=== PATIENT | female | born 1975 | race Two or more races ===

== ENCOUNTER 2017-08-21 10:35 | Day surgery (SDC) | payer OTHER, SELFPAY ==
[~2017-08-21] VITALS: Ht 152.4 cm; Wt 82.4 kg
[2017-08-21] MEDS ORDERED: ONDANSETRON 2MG/ML, 2ML IVPush ONE (11:30)
[2017-08-21] MEDS ORDERED: SODIUM CHLORIDE FLUSH 10ML SYR IVF ONE (11:30)
[2017-08-21] MEDS ORDERED: SODIUM CHLORIDE 0.9% 1,000ML IVBOLUS ONE (11:30)
[2017-08-21] MEDS ORDERED: HYDROmorphone 1 MG/ML, 1ML ONE ×2 (11:37→13:33)
[2017-08-21] MEDS ORDERED: ONDANSETRON 2MG/ML, 2ML ONE (11:37)
[2017-08-21] MEDS: HYDROmorphone 1 MG/ML, 1ML IVPush PRN ×2 (11:43→13:36)
[2017-08-21 11:52] LABS: ASPARTATE AMINO TRANSFERASE 17 U/L (15-37); BLOOD UREA NITROGEN 8 mg/dL (7-18)
[2017-08-21 13:31] VITALS: BP 152/90
[2017-08-21 13:35] LABS: HEMATOCRIT 44.3 % (34.6-47.8); HEMOGLOBIN 14.8 g/dL (11.7-16.4); WHITE BLOOD COUNT 16.6 x10^3/uL (3.4-10)
[2017-08-21] MEDS ORDERED: CEFOTETAN PMX 1GM/50ML 50 ML ONE (13:50)
[2017-08-21] MEDS ORDERED: CEFOTETAN PMX 1GM/50ML 50 ML IV ONE (14:00)
[2017-08-21] MEDS ORDERED: POTASSIUM CHLORIDE 20 MEQ in SODIUM CHLORIDE 0.9% 1,000 ML IV ONE (14:07)
[2017-08-21] MEDS ORDERED: SODIUM CHLORIDE FLUSH 10ML SYR IVF PRN (14:30)
[2017-08-21] MEDS ORDERED: HYDROmorphone 1 MG/ML, 1ML IVPush PRN (14:30)
[2017-08-21] MEDS ORDERED: ONDANSETRON 2MG/ML, 2ML IVPush PRN ×2 (14:30→15:30)
[2017-08-21] MEDS ORDERED: FENTANYL PF 100 MCG/2ML ONE ×2 (15:20→15:21)
[2017-08-21] MEDS ORDERED: MIDAZOLAM 1 MG/ML, 2ML ONE (15:21)
[2017-08-21] MEDS ORDERED: SUCCINYLCHOLINE 20 MG/ML, 10ML ONE ×2 (15:23→16:49)
[2017-08-21] MEDS ORDERED: EPINEPHRINE 1 MG/ML, 1ML ONE (15:27)
[2017-08-21] MEDS ORDERED: BUPIVACAINE/PF 0.5% ONE (15:27)
[2017-08-21] MEDS ORDERED: OXYcodone 5 MG/5 ML ORAL.SOL UDC PO PRN (15:30)
[2017-08-21] MEDS ORDERED: MEPERIDINE/PF 25MG/0.5ML IVPush PRN (15:30)
[2017-08-21] MEDS ORDERED: PROMETHAZINE 25 MG/ML, 1ML IV PRN (15:30)
[2017-08-21] MEDS ORDERED: FENTANYL PF 100 MCG/2ML IV PRN (15:30)
[2017-08-21] MEDS ORDERED: ACETAMINOPHEN 325 MG TABLET PO PRN (15:30)
[2017-08-21] MEDS ORDERED: LABETALOL 5MG/ML, 20ML IV PRN (15:30)
[2017-08-21] MEDS ORDERED: HYDROmorphone 1 MG/ML, 1ML IV PRN (15:30)
[2017-08-21] MEDS ORDERED: DEXAMETHASONE 4 MG/ML, 1ML ONE (16:31)
[2017-08-21] MEDS ORDERED: CEFOTETAN 1 GM ONE (16:31)
[2017-08-21] MEDS ORDERED: NEOSTIGMINE 1 MG/ML, 10ML ONE (16:31)
[2017-08-21] MEDS ORDERED: KETOROLAC 30 MG/1 ML ONE (16:31)
[2017-08-21] MEDS ORDERED: ROCURONIUM 10 MG/ML ONE (16:31)
[2017-08-21] MEDS ORDERED: GLYCOPYRROLATE 0.2MG/1ML, 5ML ONE (16:31)
[2017-08-21] MEDS ORDERED: PROPOFOL 10 MG/ML, 20ML ONE (16:49)
[2017-08-21] MEDS ORDERED: ACETAMINOPHEN 650 MG/20.3 ML UDC ONE (17:35)
[2017-08-21] MEDS ORDERED: OXYcodone 5 MG/5 ML ORAL.SOL UDC ONE (17:35)
[2017-08-21] MEDS ORDERED: HYDR-3240 PO (20:16)
[2017-08-21] MEDS ORDERED: HYDROcodone/APAP 5/325 TABLET PO PRN (21:00)
== END 2017-08-21 23:00 ==
LOC: OR 14:06 → UNDOADMIN 14:07 → EDIP 14:07 → OR 14:15 → SDC 17:04 → EDIP 18:10 → 4NOR 18:10 → SDC 23:00 → UNDODISIN 23:00
PROVIDERS: ATTEND Surgery
DX: K80.10 Calculus of gallbladder with chronic cholecystitis without obstruction (principal); E11.9 Type 2 diabetes mellitus without complications; Z98.890 Other specified postprocedural states; Z98.51 Tubal ligation status
CPT/HCPCS: 36415; 47562; 76700; 80053; 81001; 83690; 84703; 85025; 87086; 88304; 93005; 96361; 96365; 96366; 96375; 96376; 99285; J0171; J0330; J1100; J1170; J1885; J2405; J2704; J2710; J3010; J3490; J7030; S0074; J2250